=== PATIENT | female | born 1960 | race Two or more races ===

== ENCOUNTER 2018-10-05 12:50 | Emergency (ER) | payer MEDICAID ==
[2018-10-05] MEDS ORDERED: NS 0.9% 1000 ML** 1,000 ML IV ONE ×6 (12:56→13:31)
--- NOTE | 2018-10-05 13:00 | ED ---
Neurological HPI - HPI Summary HPI Summary: LEVEL 5 CAVEAT: COMPLETE HPI UNABLE TO BE OBTAINED DUE TO PATIENT AMS. This patient is a 58 year old F brought to ED via EMS with a chief complaint of seizures this morning. Per brother, patient experienced mild MOSELEY prior to seizures with BP 191/110. Patient took Losartan at start of MOSELEY before seizures began. Per EMS, patient experienced seizures lasting 1-2 minutes at [facility]. On ambulance, patient is responsive to painful stimuli. Patient had a 3rd seizure in the ambulance, so EMS Gave 5mg Versed at 1242. EMS arrives at 1248. Dr. Munguia at bedside at 1251. Per brother, patient has PMHx of HTN and mild mental retardation, but is typically very functional. Patient takes Losartan. - History of Current Complaint Stated Complaint: POSSIBEL SEIZURE Hx Obtained From: Family/[employer] - Brother, EMS Hx From Patient Unobtainable Due To: Altered Mental Status Onset/Duration: Sudden Onset, Started hours ago Timing: Intermittent Episodes Lasting: - 1-2 minutes Number of Seizures: 3 - Lasting 1-2 minutes Aggravating: Nothing Alleviating: Nothing Associated Signs and Symptoms: Positive: Headache - Prior to seizure PMH/Surg Hx/FS Hx/Imm Hx Previously Healthy: No - LEVEL 5 CAVEAT: COMPLETE PMH UNABLE TO BE OBTAINED DUE TO PATIENT AMS Cardiovascular History: Reports: Hx Hypertension Neurological History: Reports: Other Neuro Impairments/Disorders - Mild mental retardation Review of Systems - ROS Summary Review of Systems Summary: LEVEL 5 CAVEAT: COMPLETE REVIEW OF SYSTEMS UNABLE TO BE OBTAINED DUE TO PATIENT AMS. All Other Systems Reviewed And Are Negative: No Physical Exam - Summary Physical Exam Summary: LEVEL 5 CAVEAT: COMPLETE PHYSICAL EXAM UNABLE TO BE OBTAINED DUE TO PATIENT AMS. Appearance:lethargic/ams Skin: warm, dry, reflects adequate perfusion Head/face: normal Eyes: pinpoint pupils ENT: normal Neck: supple, non-tender Respiratory: CTA, breath sounds present Cardiovascular: tachycardia Abdomen: non-tender, soft Musculoskeletal: normal, strength/ROM intact Neuro: pt is postictal Triage Information Reviewed: Yes Vital Signs On Initial Exam: Initial Vitals Temp Pulse Resp BP Pulse Ox 99.2 F 114 31 125/67 97 10/05/18 12:56 10/05/18 12:56 10/05/18 12:56 10/05/18 12:56 10/05/18 12:56 Vital Signs Reviewed: Yes Diagnostics - Laboratory Result Diagrams: 10/05/18 13:14 10/05/18 13:14 Lab Statement: Any lab studies that have been ordered have been reviewed, and results considered in the medical decision making process. - Radiology CXR Radiology Interpretation Completed By: Radiologist Summary of Radiographic Findings: Mild pulmonary vascular congestion and interstitial edema. Dr. Munguia has reviewed this radiology report. - CT Brain CT Interpretation Completed By: Radiologist Summary of CT Findings: 1. Advanced cerebellar atrophy. 2. No acute intracranial process evident. Dr. Munguia has reviewed this radiology report. - EKG 1253 Cardiac Rate: Tachycardia - 114 BPM EKG Rhythm: Sinus Tachycardia Summary of EKG Findings: Sinus tachycardia at 114 BPM, no acute changes. Re-Evaluation - Re-Evaluation First Eval Re-Evaluation Time: 13:52 Comment: Consulted with brother who is accompanying patient. Discussed results. Patient will be transferred to [facility] for continuous EEG monitoring. Brother understands and agrees with this plan. Course/Dx - Course Course Of Treatment: LEVEL 5 CAVEAT: LIMITED DUE TO PATIENT AMS. This patient is a 58 year old F brought to ED via EMS with a chief complaint of seizures this morning. Per EMS, patient had 2 seizures lasting 1-2 minutes before their arrival. She began actively seizing again in the ambulance, so EMS gave 5mg Versed. Patient became unresponsive. EMS arrives at 1248. Dr. Munguia at bedside at 1251. EKG revealed sinus tachycardia at 114 BPM, no acute changes. Patient is fighting and kicking before getting CT, so I gave 2mg Ativan at 1318. In the ED course, patient received Ativan, Keppra, and fluids. CT Brain reveals 1. Advanced cerebellar atrophy. 2. No acute intracranial process evident. I discussed with Dr. Rdz, radiologist, who states no active bleeding and no sign of stroke evident from CT. Blood work obtained. CXR reveals mild pulmonary vascular congestion and interstitial edema. I consulted with Dr. Casper, neurologist, who agrees with active seizure and no stroke. Dr. Casper recommended the patient be transferred to the closest higher level facility for continuous EEG. Therefore, I called [facility], but they are unable to provide continuous EEG monitoring. Following consultation with Dr. Haja Ramirez, neurologist, the patient will be transferred to [facility] for continuous EEG monitoring with diagnoses of epilepsy and altered mental status. - Differential Dx Differential Diagnoses Neuro: Positive: Cerebrovascular Accident, Intracranial Bleed, Overdose, Seizure Disorder - Diagnoses Provider Diagnoses: Altered mental status, Status epilepticus - Physician Notifications Discussed Care Of Patient With: Hector Rdz Time Discussed With Above Provider: 13:35 Instructed by Provider To: Other - Consulted with Dr. Rdz, radiologist, who reports no active bleeding and no stroke in the brain CT. 1338: consulted with Dr. Casper, neurologist, who recommended the patient be transferred to the nearest higher level facility to provide continuous EEG monitoring. 1453: consulted with Dr. Haja Ramirez, neurologist, at [facility] who accepted the patient for admission. - Critical Care Time Critical Care Time: 30-74 min - 60 min Discharge - Sign-Out/Discharge Documenting (check all that apply): Patient Departure - Transfer Patient Received Moderate/Deep Sedation with Procedure: No - Discharge Plan Condition: Fair Disposition: TRANS HIGHER LVL OF CARE FAC Referrals: No Primary Care Phys,NOPCP [Primary Care Provider] - - Billing Disposition and Condition Condition: FAIR Disposition: Trans Higher Lvl of Care Fac - Attestation Statements Document Initiated by Scribe: Yes Documenting Scribe: Ramirez Burger Provider For Whom Mela is Documenting (Include Credential): Hayder Munguia MD Scribe Attestation: Ramirez Soto, scribed for Hayder Munguia MD on 10/05/18 at 1523. Scribe Documentation Reviewed: Yes Provider Attestation: The documentation as recorded by the Ramirez espinoza accurately reflects the service I personally performed and the decisions made by Hayder washburn MD Status of Scribe Document: Viewed
[2018-10-05] MEDS ORDERED: Lorazepam PYXIS KEY ONE (13:18)
[2018-10-05] MEDS ORDERED: LORazepam INJ* 2 MG/ML 1 ML VIAL ONE ×2 (13:19)
[2018-10-05] MEDS ORDERED: LORazepam INJ* 2 MG/ML 1 ML VIAL IV PUSH ONE ×3 (13:24→14:53)
[2018-10-05] MEDS ORDERED: Lorazepam PYXIS KEY PRN ×3 (13:34→14:53)
[2018-10-05 13:36] LABS: INR 0.95 (0.82-1.09)
[2018-10-05 13:40] LABS: Hematocrit 43 % (35-47); Hemoglobin 13.6 g/dL (12.0-16.0); Mean Corpuscular HGB Conc 32 g/dL (31-36); Mean Corpuscular Hemoglobin 31 pg (27-31); Mean Corpuscular Volume 96 fL (80-97); Mean Platelet Volume 7.6 fL (7.4-10.4); Platelet Count 289 10^3/uL (150-450); Red Blood Count 4.44 10^6 /uL (3.70-4.87); Red Cell Distribution Width 14 % (10.5-15)
[2018-10-05] MEDS ORDERED: levETIRAcetam 1000MG IVPREMIX* 1,000 MG/100 ML BAG IVPB ONE ×2 (13:40)
[2018-10-05 13:42] LABS: ALT 27 U/L (7-52); AST 21 U/L (13-39); Albumin 4.3 g/dL (3.2-5.2); Albumin/Globulin Ratio 1.3 (1-3); Alkaline Phosphatase 52 U/L (34-104); BUN/Creatinine Ratio 15.8 (8-20); Blood Urea Nitrogen 15 mg/dL (6-24); Calcium 8.8 mg/dL (8.6-10.3); Chloride 107 mmol/L (101-111); Creatine Kinase 142 U/L (10-223); EGFR African American 73.6 (>60); EGFR Non-African American 60.9 (>60); Globulin 3.2 g/dL (2-4); Glucose 150 mg/dL (70-100); Magnesium 2.2 mg/dL (1.9-2.7); Potassium 3.5 mmol/L (3.5-5.0); Sodium 140 mmol/L (135-145); Total Protein 7.5 g/dL (6.4-8.9)
[2018-10-05 14:02] LABS: Anion Gap 21 mmol/L (2-11); CO2 Carbon Dioxide 12 mmol/L (22-32)
[2018-10-05 14:14] LABS: ABS Eosinophils 0.2 10^3/ul (0-0.6); ABS Neutrophils 4.2 10^3/ul (1.5-7.7)
[2018-10-05 14:38] LABS: Acetaminophen < 15 mcg/mL; Alcohol < 10 mg/dL (<10); Salicylate < 2.50 mg/dL (<30)
[2018-10-05 14:52] LABS: TSH (Thyroid Stimulating Horm) 4.73 mcIU/mL (0.34-5.60)
[2018-10-05 16:31] VITALS: BP 145/95
== END 2018-10-05 16:20 | disposition short-term general hospital (02) ==
LOC: ED 12:50
DX: R41.82 Altered mental status, unspecified (principal); G40.501 Epileptic seizures related to external causes, not intractable, with status epilepticus; J81.0 Acute pulmonary edema; G32.81 Cerebellar ataxia in diseases classified elsewhere; I10 Essential (primary) hypertension; F70 Mild intellectual disabilities; R00.0 Tachycardia, unspecified
CPT/HCPCS: 36415; 70450; 71045; 80053; 80320; 80329; 82140; 82550; 82803; 83605; 83735; 84443; 84484; 85025; 85060; 85610; 93005; 96361; 96365; 96375; 96376; 99285; G0480; J1953; J2060